=== PATIENT | female | born 1990 | race Caucasian/White ===

== ENCOUNTER 2017-05-21 07:49 | Emergency (ER) | payer MEDICAID, OTHER ==
[~2017-05-21 07:49] MED LIST: Z.0.NO CURRENT MEDS
[2017-05-21 08:30] VITALS: PULSE 84
[2017-05-21 08:40] VITALS: PULSE 83
[2017-05-21 08:42] VITALS: BP 114/67; PULSE 80
--- NOTE | 2017-05-21 08:43 | PD ---
HPI Chief Complaint elevated BP Date Seen: May 21, 2017 Time Seen: 08:20 Travel History International Travel<30 Days: No Contact w/Intl Traveler<30Days: No Known Affected Area: No History of Present Illness HPI Ms. Hernandez is a 26-year-old at 24/5 weeks gestation presenting today due to concern about elevated blood pressures at home. She states that she checked her blood pressure at home and the the diastolic pressure was in the 100s. She was concerned due to having preeclampsia in her previous . She states that she's been expressing headaches off and on for about a week. She describes as throbbing in her temples. She does have a history of migraines. History Past Medical History Medical History: Denies Significant Hx Obstetric History Obstetric History 1st - spontaneous at 12 weeks 2nd - C/S at 38 weeks for pre-eclampsia Past Surgical History Narrative Surgical I&D on left foot for cellulitis- 2010 Family History Family History: Negative Social History Narrative Social History smokes a few cigarettes a day Quit Dilaudid use 3 years ago, by Suboxone, but switched to Subutex when became Alcohol Use: No Allergies-Medications (Allergen,Severity, Reaction): Coded Allergies: No Known Allergies (Verified , 02/25/09) Home Meds Reported Medications Miscellaneous (No Current Meds) [facility] [place] Review of Systems General / Constitutional: No: Fever, Chills Eyes: Blurred Vision HENT: Headaches Cardiovascular: No: Chest Pain or Discomfort Respiratory: No: Cough, Short of Breath Genitourinary: No: Dysuria Physical Exam Narrative GENERAL: Well-nourished, well-developed patient. SKIN: Warm and dry. HEAD: Normocephalic and atraumatic. EYES: No scleral icterus. No injection or drainage. ENT: No nasal drainage noted. Mucous membranes pink. Airway patent. NECK: Supple, trachea midline. No JVD. CARDIOVASCULAR: Regular rate and rhythm without murmurs, gallops, or rubs. RESPIRATORY: Breath sounds equal bilaterally. No accessory muscle use. BREASTS: Bilateral exam showed no masses , no retractions, no nipple discharge. ABDOMEN/GI: Abdomen soft, non-tender, bowel sounds present, no rebound, no guarding Gravid to 24 weeks size FHT's: Category: 1 Baseline: 130s Reactive: yes Variability: moderate Decels: none EXTREMITIES: No cyanosis or edema. BACK: Nontender without obvious deformity. No CVA tenderness. NEUROLOGICAL: Awake and alert. Motor and sensory grossly within normal limits. Five out of 5 muscle strength in all muscle groups. Normal speech. Data Data Vital Signs Reviewed: Yes Orders Orders Vital Signs (Adult) .ON ADMISSION (05/21/17 08:35) ^ Labor Status (05/21/17 08:35) ^ Non Stress Test (05/21/17 08:35) MDM Plan Ms. Hernandez is a 26yo at 05/09 presenting due to concerns about elevated blood pressures at home. -BP during ED visit are WNL. -No protein in urine dip -Reassured patient about BP and signs to look out for to return to ED SDW Dr. Page Diagnosis Diagnosis: Primary Impression: 24 weeks gestation of Disposition: DISCHARGE HOME Condition: Stable Nia Smith MD R1 May 21, 2017 08:43
== END 2017-05-21 09:27 | disposition home or self-care (01) ==
LOC: HOBED 07:49
DX: O26.892 Other specified pregnancy related conditions, second trimester (principal); R51 Headache; O99.332 Smoking (tobacco) complicating pregnancy, second trimester; F17.210 Nicotine dependence, cigarettes, uncomplicated; Z3A.24 24 weeks gestation of pregnancy
CPT/HCPCS: 99283

== ENCOUNTER 2017-08-14 16:58 | Inpatient (IN) | payer MEDICAID ==
[~2017-08-14] VITALS: Ht 152.4 cm; Wt 76.0 kg
[2017-08-14] MEDS ORDERED: LACTATED RINGER'S 1000 ML INJ 1,000 ML IV ONE (17:09)
[2017-08-14] MEDS ORDERED: LACTATED RINGER'S 1000 ML INJ 1,000 ML IV PRN (17:09)
[2017-08-14] MEDS ORDERED: LACTATED RINGER'S 1000 ML INJ 1,000 ML IV SCH ×2 (17:09→17:39)
[2017-08-14] MEDS ORDERED: CITRIC ACID-SODIUM CITRATE LIQ 30 ML UDC PO SCH ×2 (17:15→18:45)
[2017-08-14] MEDS ORDERED: LIDOCAINE HCL 1% 50 ML VIAL I-DERMAL PRN (17:15)
[2017-08-14] MEDS ORDERED: OXYTOCIN 30 UNITS-500ML PREMIX 500 ML IV ONE (17:15)
[2017-08-14] MEDS ORDERED: SODIUM CHLORID 0.9% 500 ML INJ 500 ML IV PRN (17:15)
[2017-08-14] MEDS ORDERED: LIDOCAINE HCL 1% 50 ML VIAL INFIL PRN (17:15)
[2017-08-14] MEDS ORDERED: MINERAL OIL 10 ML VIAL TOPICAL PRN (17:15)
[2017-08-14 17:25] VITALS: BP 126/82; PULSE 99; RESP 18; TEMP 98
[2017-08-14] MEDS ORDERED: SODIUM CHLOR 0.9% 1000 ML INJ 1,000 ML IV PRN (17:29)
[2017-08-14] MEDS ORDERED: CLON1 PO (18:12)
[2017-08-14] MEDS ORDERED: ceFAZolin 2 GM PREMIX 50 ML IV SCH (18:15)
[2017-08-14] MEDS: BUPRENORPHINE HCL 8 MG SUBLINGUAL TAB SL SCH (18:48)
[2017-08-14 18:55] LABS: AUTOMATED NEUTROPHIL # 8.5 TH/MM3 (1.8-7.7); BASOPHIL # 0.1 TH/MM3 (0-0.2); BASOPHIL % 0.4 % (0.0-2.0); EOSINOPHIL # 0.1 TH/MM3 (0-0.4); EOSINOPHIL % 0.9 % (0.0-4.0); HEMATOCRIT 33.1 % (35.0-46.0); HEMOGLOBIN 11.3 GM/DL (11.6-15.3); LYMPH % 25.7 % (9.0-44.0); LYMPHOCYTE # 3.1 TH/MM3 (1.0-4.8); MEAN CELL VOLUME 86.1 FL (80.0-100.0); MEAN CORPUSCULAR HEMOGLOBIN 29.3 PG (27.0-34.0); MEAN PLATELET VOLUME 10.1 FL (7.0-11.0); MONO % 3.1 % (0.0-8.0); MONOCYTE # 0.4 TH/MM3 (0-0.9); NEUT % 69.9 % (16.0-70.0); PLATELET COUNT 223 TH/MM3 (150-450); RED BLOOD COUNT 3.84 MIL/MM3 (4.00-5.30); RED CELL DISTRIBUTION WIDTH 12.9 % (11.6-17.2); WHITE BLOOD COUNT 12.1 TH/MM3 (4.0-11.0)
[2017-08-14 19:00] LABS: BILIRUBIN, URINE NEG (NEG); BLOOD, URINE NEG (NEG); GLUCOSE,URINE NEG (NEG); KETONE, URINE NEG (NEG); NITRITE,URINE NEG (NEG); SQUAMOUS EPITHELIAL CELL URINE 1 /hpf (0-5); URINE COLOR YELLOW (YELLW/STRAW); URINE LEUKOCYTE ESTERASE NEG (NEG)
[2017-08-14] MEDS ORDERED: BETAMETHASONE SOD PHOS/ACETATE SUSP 30 MG/5 ML VIAL IM ONE (19:00)
[2017-08-14 19:22] LABS: ALBUMIN 2.8 GM/DL (3.4-5.0)
[2017-08-14 19:24] LABS: DIRECT BILIRUBIN ADULT 0.1 MG/DL (0.0-0.2); INDIRECT BILIRUBIN 0.2 MG/DL (0.0-0.8); TOTAL BILIRUBIN ADULT 0.3 MG/DL (0.2-1.0); TOTAL PROTEIN 8.1 GM/DL (6.4-8.2)
[2017-08-14] MEDS: clonazePAM 0.5 MG TAB PO SCH (21:00)
[2017-08-14 22:00] VITALS: RESP 18; TEMP 98.2
[2017-08-14] MEDS ORDERED: ACETAMINOPHEN 325 MG TAB PO ONE (23:15)
[2017-08-15] VITALS (9 sets, daily range): BP systolic 112–153; BP diastolic 67–95; PULSE 48–82; RESP 16–18; TEMP 97.6–98.7; O2SAT 97–100
[2017-08-15] MEDS: BUPRENORPHINE HCL 8 MG SUBLINGUAL TAB SL SCH ×3 (07:47→19:45)
[2017-08-15] MEDS: clonazePAM 0.5 MG TAB PO SCH (07:47)
--- NOTE | 2017-08-15 07:51 | PD.OB.ANTE ---
Subjective Diagnosis: (1) Opioid use disorder, mild, in early remission, on maintenance therapy (2) Third trimester (3) Pre-eclampsia in third trimester (4) Previous delivery affecting Interval History quiet night after admission for elevated BP, WALLS, protein in urine and swelling. Desired repeat section since cervix unfavorable Objective Vital Signs Vital Signs Date Time Temp Pulse Resp B/P (MAP) Pulse Ox O2 Delivery O2 Flow Rate FiO2 08/15/17 07:22 97.6 82 18 132/95 (107) 08/14/17 22:00 98.2 18 08/14/17 17:25 99 18 126/82 (97) 08/14/17 17:25 98.0 Lab & Micro Results Test 08/14/17 17:09 08/14/17 17:43 08/14/17 20:32 Urine Color YELLOW Urine Turbidity CLEAR Urine pH 6.0 Urine Specific [place] 1.013 Urine Protein NEG mg/dL Urine Glucose (UA) NEG mg/dL Urine Ketones NEG mg/dL Urine Occult Blood NEG Urine Nitrite NEG Urine Bilirubin NEG Urine Urobilinogen LESS THAN 2.0 MG/DL Urine Leukocyte Esterase NEG Urine WBC 1 /hpf Urine Squamous Epithelial Cells 1 /hpf Microscopic Urinalysis Comment CULT NOT INDICATED White Blood Count 12.1 TH/MM3 Red Blood Count 3.84 MIL/MM3 Hemoglobin 11.3 GM/DL Hematocrit 33.1 % Mean Corpuscular Volume 86.1 FL Mean Corpuscular Hemoglobin 29.3 PG Mean Corpuscular Hemoglobin Concent 34.0 % Red Cell Distribution Width 12.9 % Platelet Count 223 TH/MM3 Mean Platelet Volume 10.1 FL Neutrophils (%) (Auto) 69.9 % Lymphocytes (%) (Auto) 25.7 % Monocytes (%) (Auto) 3.1 % Eosinophils (%) (Auto) 0.9 % Basophils (%) (Auto) 0.4 % Neutrophils # (Auto) 8.5 TH/MM3 Lymphocytes # (Auto) 3.1 TH/MM3 Monocytes # (Auto) 0.4 TH/MM3 Eosinophils # (Auto) 0.1 TH/MM3 Basophils # (Auto) 0.1 TH/MM3 CBC Comment DIFF FINAL Differential Comment Urine Random Creatinine 91 MG/DL Urine Random Total Protein 18 MG/DL Urine Protein/Creatinine Ratio 0.20 Total Bilirubin 0.3 MG/DL Direct Bilirubin 0.1 MG/DL Indirect Bilirubin 0.2 MG/DL Aspartate Amino Transf (AST/SGOT) 19 U/L Alanine Aminotransferase (ALT/SGPT) 20 U/L Alkaline Phosphatase 139 U/L Total Protein 8.1 GM/DL Albumin 2.8 GM/DL Urine Opiates Screen NEG Urine Barbiturates Screen NEG Urine Amphetamines Screen NEG Urine Benzodiazepines Screen POS Urine Cocaine Screen NEG Urine Cannabinoids Screen POS Chlamydia trachomatis DNA (PCR) NOT DETECTED Neisseria gonorrhoeae DNA (PCR) NOT DETECTED Fibrinogen 428 mg/dL Physical Exam GENERAL: Well-nourished, well-developed patient. CARDIOVASCULAR: Regular rate and rhythm without murmurs, gallops, or rubs. RESPIRATORY: Breath sounds equal bilaterally. No accessory muscle use. ABDOMEN/GI: Abdomen soft, non-tender. term fundus vertex 50%/ft/anterior/firm EFW 6 pounds EXTREMITIES: No cyanosis or edema, non-tender, without signs of DVT. Assessment and Plan Assessment and Plan repeat section with TAP post delivery maintain subutex re evaluate other medications anticipate 3 days post op baby will have 5 day stay Anayeli Jones MD August 15, 2017 07:51
[2017-08-15] MEDS ORDERED: LACTATED RINGER'S 1000 ML INJ 1,000 ML IV ONE ×2 (07:57→12:00)
[2017-08-15] MEDS ORDERED: LACTATED RINGER'S 1000 ML INJ 1,000 ML IV SCH ×2 (08:27→15:27)
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
[2017-08-15] MEDS ORDERED: ACETAMINOPHEN 1000 MG/100 ML 100 ML IV ONE ×2 (09:00→10:30)
[2017-08-15] MEDS ORDERED: MORPHINE SULFATE PF 5 MG/10 ML VIAL ONE (09:00)
[2017-08-15] MEDS ORDERED: ceFAZolin 2 GM PREMIX 50 ML IV SCH (09:00)
[2017-08-15] MEDS ORDERED: EPIDURAL-NALOXONE HCL 0.4 MG/ML AMP IV PUSH PRN (09:30)
[2017-08-15] MEDS ORDERED: EPIDURAL-DIPHENHYDRAMINE HCL 50 MG CAP PO PRN (09:30)
[2017-08-15] MEDS ORDERED: EPIDURAL-NO SYSTEMIC NARCOTICS PRN (09:30)
[2017-08-15] MEDS ORDERED: EPIDURAL-DIPHENHYDRAMINE HCL 50 MG/ML VIAL IV PUSH PRN (09:30)
[2017-08-15] MEDS ORDERED: CITRIC ACID-SODIUM CITRATE LIQ 30 ML UDC PO SCH (09:30)
[2017-08-15] MEDS ORDERED: EPIDURAL-DO NOT ADMINISTER ANTICOAGULANTS PRN (09:30)
[2017-08-15] MEDS ORDERED: ROPIVACAINE 0.5% PF INJ 30 ML VIAL ONE ×2 (10:26→10:30)
--- NOTE | 2017-08-15 10:27 | PD.OB.DELI ---
Procedure Note Section Procedure Pre Op Diagnosis: (1) Third trimester (2) Pre-eclampsia in third trimester (3) Opioid use disorder, mild, in early remission, on maintenance therapy Post Op Diagnosis: (1) Status post bilateral salpingectomy (2) delivery due to previous difficult delivery, delivered, current hospitalization Performed by Anayeli Jones Procedure: Repeat Low Transverse Sec, Other (bilateral fimbriectomy) Indication for delivery: Desired elective repeat Previous condition: Uterine Window Informed consent obtained: For anesthesia, For procedure Confirmed correct: Patient, Procedure, Site, Time-out taken Anesthesia: Spinal, Other (post op TAP) Medication prior to procedure: As documented in eMAR Monitoring during procedure: Blood pressure monitoring, threat monitoring analyst, doppler Urinary catheter: Inserted using sterile technique, To dependent drainage, ml urine output Sterile preparation: Duraprep, In usual fashion, With 2% chlorexidine ( Hibiclens) Position: Supine with wedge to right side Operative Features Skin Incision: Pfannenstiel Uterine Incision: Low transverse w/knife / blunt ext Membranes Ruptured: Artificially Presentation: Occiput anterior Delivery date: August 15, 2017 Delivery time: 10:26 Infant: Female One Minute : 9 Five Minute : 9 Weight: 5 7 Status of infant: Viable, Cord blood, Nursery present Placenta delivered: Intact, Other (temproary uterin inversion) Medications: Antibiotics, Oxytocin Estimated blood loss: 500 Procedure tolerated: Well Maternal Condition: Stable Condition: Stable (dictated) Anayeli Jones MD August 15, 2017 10:27
[2017-08-15] MEDS ORDERED: ONDANSETRON HCL 4 MG/2 ML VIAL IV PUSH PRN (10:30)
[2017-08-15] MEDS ORDERED: KETOROLAC TROMETHAMINE 60 MG/2 ML (IM) VIAL IM PRN (10:30)
[2017-08-15] MEDS ORDERED: oxyCODONE/ACETAMINOPHEN 5 MG/325 MG TAB PO PRN (10:30)
[2017-08-15] MEDS ORDERED: OXYTOCIN 30 UNITS-500ML PREMIX 500 ML IV ONE (10:30)
[2017-08-15] MEDS ORDERED: SODIUM CHLORIDE 0.9% FLUSH 10 ML FLUSH IV FLUSH PRN (10:30)
[2017-08-15] MEDS ORDERED: ZOLPIDEM TARTRATE 5 MG TAB PO PRN (10:30)
[2017-08-15] MEDS ORDERED: MIDAZOLAM HCL 2 MG/2 ML VIAL ONE (10:37)
[2017-08-15] MEDS ORDERED: OXYTOCIN 30 UNITS-500ML PREMIX 500 ML ONE (11:34)
[2017-08-15] MEDS ORDERED: SODIUM CHLORIDE 0.9% 20 ML VIAL IV ONE (12:00)
[2017-08-15] MEDS ORDERED: DEXAMETHASONE SOD PHOS 4 MG/ML VIAL IV ONE (12:00)
[2017-08-15] MEDS ORDERED: ONDANSETRON HCL 4 MG/2 ML VIAL IV ONE (12:00)
[2017-08-15] MEDS ORDERED: LIDOCAINE HCL 1% PF 5 ML SYRINGE OTHER ONE (12:00)
[2017-08-15] MEDS ORDERED: PHENYLEPH/NS 1000 MCG/10 ML SYR IV ONE (12:00)
[2017-08-15] MEDS ORDERED: OXYTOCIN 10 UNIT/ML AMP IV ONE (12:00)
--- NOTE | 2017-08-15 13:53 | MP ---
cc: Anayeli Jones MD DATE OF OPERATION: 08/15/2017 PREOPERATIVE DIAGNOSIS: A 36-week intrauterine with preeclampsia, previous section and desired sterility. POSTOPERATIVE DIAGNOSIS: A 36-week intrauterine with preeclampsia, previous section and desired sterility, delivered. PROCEDURE PERFORMED: Repeat low transverse segment section and bilateral fimbriectomy. ANESTHESIA: Spinal with Duramorph followed by a tap block. SURGEON: Anayeli Jones MD NET SQL DEVELOPER: Wilfrid. FINDINGS: A living female was delivered from LOT with clear fluid and no nuchal cord. Placenta was intact with 3-vessel cord. Removal of placenta did cause a temporary uterine inversion, which was replaced in the anatomic position. Blood loss was actually less than average. 's weight was 5 pounds 7 ounces and her Apgars were 9 at one and 9 at five. Both fimbria and the second half of the tubes were excised for contraception and to reduce risk of later cancer. Sponge, instrument and needle count were correct and mom and baby tolerated the procedure well. DESCRIPTION OF PROCEDURE: The patient was taken to the operating room, her spinal was administered with Duramorph. She received 2 grams of Ancef IV. She was placed in dorsal supine position with weight off the vena cava. A timeout was performed. She had a Morin placed, sequential stockings on. She was prepped and draped in the usual sterile fashion. After assuring adequate analgesia, a Pfannenstiel incision was made in the inner portion of her previous Pfannenstiel, not quite as large, and taken down to the rectus fascia. Then, the rectus muscle in the midline was and the parietal peritoneum bluntly entered. A bladder blade was placed in the lower portion of the incision and a uterine window was noted, and the scalpel was used to just gently pop the uterine window and then the incision was extended vertically. The was delivered with the findings as noted above. The cord was allowed to pulse for 45 seconds and then it was clamped x 2, cut and she was handed to the neonatology team in attending. The placenta was delivered manually intact and the uterus turned back outside in, and then manually massaged and closed with chromic in a running interlocking fashion. Then, the right tube was grasped with the Renetta, and the fimbria and the tube were excised up to the midportion of the tube and handed off. The left tube was treated the same and labeled. The areas were assessed for hemostasis and then irrigation was performed. The rectus muscle was approximated, and the fascia was closed with 1 Vicryl in a noninterlocking fashion. The subcutaneous layer was closed with 3-0 plain, and the skin was closed with 4-0 Vicryl on a Glenn needle. ESTIMATED BLOOD LOSS: 500 or less. COUNTS: Sponge, instrument and needle count were correct. Anayeli Jones MD PPC/SB , 01:09 PM , 01:53 PM
[2017-08-15] MEDS: IBUPROFEN 600 MG TAB PO PRN ×2 (15:17→21:38)
[2017-08-15] MEDS: clonazePAM 1 MG TAB PO SCH ×2 (15:17→22:44)
[2017-08-15] MEDS ORDERED: OXYTOCIN 30 UNITS-500ML PREMIX 500 ML IV PRN (15:30)
[2017-08-15] MEDS: SODIUM CHLORIDE 0.9% FLUSH 10 ML FLUSH IV FLUSH SCH (21:00)
[2017-08-16 00:08] VITALS: BP 111/80; PULSE 74; RESP 18; TEMP 97.9
[2017-08-16 03:54] VITALS: BP 104/71; PULSE 70; RESP 18; TEMP 98.1
[2017-08-16] MEDS: IBUPROFEN 600 MG TAB PO PRN ×3 (05:06→22:12)
[2017-08-16] MEDS: clonazePAM 1 MG TAB PO SCH ×3 (05:54→22:12)
[2017-08-16 06:03] LABS: AUTOMATED NEUTROPHIL # 12.3 TH/MM3 (1.8-7.7); BASOPHIL % 0.2 % (0.0-2.0); EOSINOPHIL % 0.2 % (0.0-4.0); HEMATOCRIT 31.1 % (35.0-46.0); HEMOGLOBIN 10.5 GM/DL (11.6-15.3); LYMPH % 18.9 % (9.0-44.0); LYMPHOCYTE # 3.1 TH/MM3 (1.0-4.8); MEAN CELL VOLUME 87.5 FL (80.0-100.0); MEAN CORPUSCULAR HEMOGLOBIN 29.6 PG (27.0-34.0); MEAN CORPUSCULAR HGB CONC 33.8 % (32.0-36.0); MEAN PLATELET VOLUME 10.4 FL (7.0-11.0); MONO % 5.2 % (0.0-8.0); MONOCYTE # 0.8 TH/MM3 (0-0.9); NEUT % 75.5 % (16.0-70.0); PLATELET COUNT 206 TH/MM3 (150-450); RED BLOOD COUNT 3.55 MIL/MM3 (4.00-5.30); RED CELL DISTRIBUTION WIDTH 12.6 % (11.6-17.2); WHITE BLOOD COUNT 16.2 TH/MM3 (4.0-11.0)
[2017-08-16 08:00] VITALS: BP 109/81; PULSE 65; RESP 20; TEMP 97.7; O2SAT 97
--- NOTE | 2017-08-16 08:24 | HHI.OB ---
Subjective Post Operative Day: 1 Remarks pod#1; Pain is controlled on motrin, states she better with TORADOL with her first delivery. Objective Vitals/I&O Vital Signs Date Time Temp Pulse Resp B/P (MAP) Pulse Ox O2 Delivery O2 Flow Rate FiO2 08/16/17 03:54 98.1 70 18 104/71 (82) 08/16/17 00:08 97.9 74 18 111/80 (90) 08/15/17 20:24 98.0 48 17 112/68 (83) 08/15/17 12:50 97.6 56 18 129/76 (93) 97 08/15/17 11:45 67 16 100 08/15/17 11:45 142/67 (92) 08/15/17 11:30 57 16 100 08/15/17 11:15 55 153/72 (99) 08/15/17 11:15 16 100 08/15/17 11:00 54 133/76 (95) 08/15/17 10:44 100 08/15/17 10:27 98.7 66 16 100 Result Diagram: 08/16/17 0508 Objective Remarks GENERAL: Well-nourished, well-developed patient. CARDIOVASCULAR: Regular rate and rhythm without murmurs, gallops, or rubs. RESPIRATORY: Breath sounds equal bilaterally. No accessory muscle use. ABDOMEN/GI: Abdomen soft, non-tender, bowel sounds present. Incision: Clean, dry and intact. Fundus: Firm, non-tender at umbilicus. GENITOURINARY: Light to moderate bleeding. EXTREMITIES: No cyanosis or edema, non-tender, without signs of DVT. Medications and IVs Current Medications Medications (Trade) Dose Ordered Sig/Hedy Route Start Time Stop Time Status Last Admin (Xylocaine 1% Inj (50 ml)) 0.1 ml UNSCH X1 PRN I-DERMAL 08/14/17 17:15 08/17/17 17:14 (Xylocaine 1% Inj (50 ml)) 10 ml UNSCH X1 PRN INFIL 08/14/17 17:15 08/16/17 17:14 (Muri-Lube Oil) 10 ml UNSCH PRN TOPICAL 08/14/17 17:15 (Bicitra Liq) 30 ml CHAIR INSTALLER PO 08/14/17 18:45 08/18/17 18:44 Lactated Ringer's 1,000 ml @ 150 mls/hr Q6H40M IV 08/15/17 08:27 Lactated Ringer's 1,000 ml @ 100 mls/hr Q10H IV 08/15/17 15:27 08/16/17 11:26 Oxytocin 500 ml @ 100 mls/hr UNSCH X1 PRN IV 08/15/17 15:30 08/16/17 15:29 (NS Flush) 2 ml BID IV FLUSH 08/15/17 21:00 (NS Flush) 2 ml UNSCH PRN IV FLUSH 08/15/17 10:30 (Motrin) 600 mg Q6H PRN PO 08/15/17 10:30 08/16/17 05:06 (Toradol Inj) 60 mg UNSCH X1 PRN IM 08/15/17 10:30 08/16/17 10:29 (Percocet 5-325 Mg) 1 tab Q4H PRN PO 08/15/17 10:30 (Percocet 5-325 Mg) 2 tab Q4H PRN PO 08/15/17 10:30 (Ambien) 5 mg HS PRN PO 08/15/17 10:30 (M-M-R Ii Inj) 0.5 ml ONCE ONCE SQ 08/16/17 16:00 08/16/17 16:01 (Boostrix Inj) 0.5 ml ONCE ONCE IM 08/16/17 16:00 08/16/17 16:01 (Zofran Inj) 4 mg Q6H PRN IV PUSH 08/15/17 10:30 (Buprenorphine) 8 mg TID SL 08/15/17 13:00 08/15/17 19:45 (KlonoPIN) 1 mg Q8HR PO 08/15/17 14:00 08/16/17 05:54 ([facility] [place] [facility]) NO SYSTEMIC NARCOTICS TO BE GIVEN FO... UNSCH PRN .XX 08/15/17 09:30 08/16/17 09:29 (Narcan Inj) 0.4 mg UNSCH PRN IV PUSH 08/15/17 09:30 08/16/17 09:29 (Benadryl Inj) 25 mg Q6H PRN IV PUSH 08/15/17 09:30 08/16/17 09:29 (Benadryl) 50 mg Q6H PRN PO 08/15/17 09:30 08/16/17 09:29 ([facility] [place] [facility] Information) ALL NURSING DEPARTMENTS UNSCH PRN .XX 08/15/17 09:30 08/16/17 09:29 Assessment/Plan Problem List: (1) Opioid use disorder, mild, in early remission, on maintenance therapy ICD Codes: F11.11 - Opioid abuse, in remission (2) Third trimester ICD Codes: Z34.93 - Encounter for supervision of normal , unspecified , third trimester (3) Pre-eclampsia in third trimester ICD Codes: O14.93 - Unspecified pre-eclampsia, third trimester (4) Previous delivery affecting ICD Codes: O34.219 - Maternal care for unspecified type scar from previous delivery Assessment and Plan POD#1; stable, add TORADOL as back up maintain subutex re evaluate other medications anticipate 2-3 days post op baby will have 5 day stay Discharge Planning Consider discharge on POD#2 Attending Attestation seen by Rony Lucia MD August 16, 2017 08:24
[2017-08-16] MEDS ORDERED: IBUP-232 PO (08:26)
--- NOTE | 2017-08-16 08:27 | HHI.DS ---
Admission Date August 14, 2017 at 16:58 Admitting Diagnosis Diagnosis: Delivery Date: August 15, 2017 Infant: Female Pt Condition on Discharge: Good Discharge Disposition: Discharge Home Discharge Instructions Diet Instructions: As Tolerated, No Restrictions Activities You Can Perform: Shower Only-No Bath Activities to Avoid: Prolonged Standing, Strenuous Activity, Sexual Activity Rony Osman MD August 16, 2017 08:27
[2017-08-16] MEDS ORDERED: KETOROLAC TROMETHAMINE 10 MG TAB PO PRN (08:30)
[2017-08-16] MEDS: BUPRENORPHINE HCL 8 MG SUBLINGUAL TAB SL SCH ×3 (08:53→18:23)
[2017-08-16] MEDS ORDERED: DIPHTH/TETANUS/ACEL PERTUSSIS (BOOSTER) 0.5 ML VIAL/PFS IM ONE (16:00)
[2017-08-16] MEDS ORDERED: MEASLES, MUMPS, RUBELLA VACCINE 0.5 ML VIAL SQ ONE (16:00)
[2017-08-16] MEDS: oxyCODONE/ACETAMINOPHEN 5 MG/325 MG TAB PO PRN ×2 (16:53→22:12)
[2017-08-16] MEDS ORDERED: DOCUSATE SODIUM 50 MG/SENNA 8.6 MG TAB PO PRN (18:00)
[2017-08-16 20:00] VITALS: BP 127/96; PULSE 78; RESP 18; TEMP 98.3; O2SAT 96
[2017-08-16] MEDS: SODIUM CHLORIDE 0.9% FLUSH 10 ML FLUSH IV FLUSH SCH (20:44)
[2017-08-17] MEDS: IBUPROFEN 600 MG TAB PO PRN ×2 (04:09→10:15)
[2017-08-17] MEDS: oxyCODONE/ACETAMINOPHEN 5 MG/325 MG TAB PO PRN ×2 (04:09→10:15)
[2017-08-17] MEDS: clonazePAM 1 MG TAB PO SCH (06:20)
[2017-08-17 07:40] VITALS: BP 135/87; PULSE 56
[2017-08-17] MEDS: BUPRENORPHINE HCL 8 MG SUBLINGUAL TAB SL SCH (09:11)
[2017-08-17] MEDS ORDERED: OXYC1TAB63 PO (11:52)
--- NOTE | 2017-08-17 11:59 | HHI.OB ---
Subjective Post Operative Day: 2 Remarks POD#2, stable, desires discharge ,ambulatory ,no orthostatic symptoms. Is using motrin and PERCOCET for pain ,approved by Dr Jones. Objective Vitals/I&O Vital Signs Date Time Temp Pulse Resp B/P (MAP) Pulse Ox O2 Delivery O2 Flow Rate FiO2 08/17/17 07:40 56 135/87 (103) 08/16/17 20:00 98.3 78 18 127/96 (106) 96 Result Diagram: 08/16/17 0501 Objective Remarks GENERAL: Well-nourished, well-developed patient. CARDIOVASCULAR: Regular rate and rhythm without murmurs, gallops, or rubs. RESPIRATORY: Breath sounds equal bilaterally. No accessory muscle use. ABDOMEN/GI: Abdomen soft, non-tender, bowel sounds present. Incision: Clean, dry and intact. Fundus: Firm, non-tender at umbilicus. GENITOURINARY: Light to moderate bleeding. EXTREMITIES: No cyanosis or edema, non-tender, without signs of DVT. Medications and IVs Current Medications Medications (Trade) Dose Ordered Sig/Hedy Route Start Time Stop Time Status Last Admin (Xylocaine 1% Inj (50 ml)) 0.1 ml UNSCH X1 PRN I-DERMAL 08/14/17 17:15 08/17/17 17:14 (Muri-Lube Oil) 10 ml UNSCH PRN TOPICAL 08/14/17 17:15 (Bicitra Liq) 30 ml DIRECTOR TELEVISION PO 08/14/17 18:45 08/18/17 18:44 Lactated Ringer's 1,000 ml @ 150 mls/hr Q6H40M IV 08/15/17 08:27 (NS Flush) 2 ml BID IV FLUSH 08/15/17 21:00 (NS Flush) 2 ml UNSCH PRN IV FLUSH 08/15/17 10:30 (Motrin) 600 mg Q6H PRN PO 08/15/17 10:30 08/17/17 10:15 (Percocet 5-325 Mg) 1 tab Q4H PRN PO 08/15/17 10:30 08/17/17 10:15 (Percocet 5-325 Mg) 2 tab Q4H PRN PO 08/15/17 10:30 (Ambien) 5 mg HS PRN PO 08/15/17 10:30 (Zofran Inj) 4 mg Q6H PRN IV PUSH 08/15/17 10:30 (Buprenorphine) 8 mg TID SL 08/15/17 13:00 08/17/17 09:11 (KlonoPIN) 1 mg Q8HR PO 08/15/17 14:00 08/17/17 06:20 (Toradol) 10 mg Q6H PRN PO 08/16/17 08:30 08/21/17 08:29 (Francesca-Colace) 2 tab Q12H PRN PO 08/16/17 18:00 08/16/17 22:11 Assessment/Plan Problem List: (1) Opioid use disorder, mild, in early remission, on maintenance therapy ICD Codes: F11.11 - Opioid abuse, in remission (2) Third trimester ICD Codes: Z34.93 - Encounter for supervision of normal , unspecified , third trimester (3) Pre-eclampsia in third trimester ICD Codes: O14.93 - Unspecified pre-eclampsia, third trimester (4) Previous delivery affecting ICD Codes: O34.219 - Maternal care for unspecified type scar from previous delivery Assessment and Plan POD#2; Stable, will go to close stay PEDS6, reinforced level of activity/ restrictions . maintain subutex Will use low dose PERCOCET WITH TORADOL baby will have 5 day stay Discharge Planning ROUTINE, WILL GO TO CLOSE STAY ON PEDS Attending Attestation SEEN BY Rony Quinones MD August 17, 2017 11:59
[2017-08-17] MEDS ORDERED: KETO10 PO (12:00)
== END 2017-08-17 12:37 | disposition home or self-care (01) | DRG 765 ==
LOC: H2EB 16:58 → H1EA 08-15 12:22
PROVIDERS: ADMIT Obstetrics & Gynecology; ATTEND Obstetrics & Gynecology
PROC: 10D00Z1 Extraction of Products of Conception, Low, Open Approach (ICD-10-PCS; principal; 2017-08-15)
PROC: 0UB70ZZ Excision of Bilateral Fallopian Tubes, Open Approach (ICD-10-PCS; 2017-08-15)
DX: O10.02 Pre-existing essential hypertension complicating childbirth (principal); O99.324 Drug use complicating childbirth; O98.42 Viral hepatitis complicating childbirth; B19.20 Unspecified viral hepatitis C without hepatic coma; O11.4 Pre-existing hypertension with pre-eclampsia, complicating childbirth; F11.21 Opioid dependence, in remission; O34.211 Maternal care for low transverse scar from previous cesarean delivery; O99.344 Other mental disorders complicating childbirth; F41.9 Anxiety disorder, unspecified; Z3A.36 36 weeks gestation of pregnancy; Z37.0 Single live birth; Z30.2 Encounter for sterilization; Z87.891 Personal history of nicotine dependence
CPT/HCPCS: 59025; 80076; 80307; 81001; 82570; 84156; 85025; 85384; 86900; 86901; 87491; 87591; 88302; G0481; J0131; J0690; J0702; J1100; J2250; J2274; J2370; J2405; J2590; J2795; J7120